=== PATIENT | male | born 1960 | race African-American/Black ===

== ENCOUNTER 2016-09-25 16:32 | Emergency (ER) | payer MEDICAID ==
[~2016-09-25] VITALS: Ht 177.8 cm; Wt 94.0 kg
[~2016-09-25 16:32] MED LIST: AMLO5TAB4 PO; HYDR-523 PO; TRAM50TA3 PO
[2016-09-25] MEDS ORDERED: SODIUM CHLORIDE 0.9% 1,000 ML IV ONE (18:45)
[2016-09-25 19:19] LABS: HEMATOCRIT. 27.7 % (42.0-52.0); HEMOGLOBIN. 8.5 g/dL (14.0-18.0); MEAN CORPUSCULAR HEMOGLOBIN 22.7 pg (28.0-32.0); MEAN CORPUSCULAR VOLUME 73.9 fL (80.0-94.0); MEAN PLATELET VOLUME 8.1 fl (7.4-10.4); PLATELET 105 x1000/uL (130-400); RED BLOOD CELL COUNT 3.75 mill/uL (4.7-6.1); RED CELL DISTRIBUTION WIDTH 22.1 % (11.6-14.6)
[2016-09-25 19:31] LABS: CARBON DIOXIDE 24 mEq/L (21-32); CHLORIDE 111 mEq/L (98-107); ETHANOL BLOOD 149 mg/dL
[2016-09-25] MEDS ORDERED: IBUPROFEN 600MG TABLET PO ONE (19:45)
[2016-09-25 20:30] LABS: NUCLEATED RED BLOOD CELLS 3 /100 WBC; PLATELET ESTIMATE SLIGHTLY DECREASED
[2016-09-25 23:40] VITALS: BP 138/78
[2016-09-26] MEDS ORDERED: INSULIN REGULAR (HUMULIN R) 300UNITS/3ML IV ONE
[2016-12-18] MEDS ORDERED: PROT40 PO (11:43)
[2017-01-09] MEDS ORDERED: THIA100T72 PO (11:25)
[2017-01-09] MEDS ORDERED: FOLI-43 PO (11:25)
[2017-04-01] MEDS ORDERED: HYDR-4001 PO (08:41)
== END 2016-09-25 23:51 | disposition home or self-care (01) ==
LOC: ER 18:05
DX: S00.83XA Contusion of other part of head, initial encounter (principal); S50.312A Abrasion of left elbow, initial encounter; R55 Syncope and collapse; I10 Essential (primary) hypertension; F17.210 Nicotine dependence, cigarettes, uncomplicated; K76.9 Liver disease, unspecified; D64.9 Anemia, unspecified; F10.129 Alcohol abuse with intoxication, unspecified; Y90.6 Blood alcohol level of 120-199 mg/100 ml; Z96.649 Presence of unspecified artificial hip joint; W01.0XXA Fall on same level from slipping, tripping and stumbling without subsequent striking against object, initial encounter; Y93.89 Activity, other specified; Y92.018 Other place in single-family (private) house as the place of occurrence of the external cause
CPT/HCPCS: 36415; 80048; 85025; 96360; 99284; G0482; J7030; Z7610

== ENCOUNTER 2016-09-26 00:28 | Emergency (ER) | payer MEDICAID ==
[~2016-09-26] VITALS: Ht 177.8 cm; Wt 94.0 kg
[2016-09-26 05:40] VITALS: BP 147/93
== END 2016-09-26 05:59 | disposition home or self-care (01) ==
LOC: ER 00:28
DX: S09.90XA Unspecified injury of head, initial encounter (principal); I10 Essential (primary) hypertension; K70.30 Alcoholic cirrhosis of liver without ascites; F17.210 Nicotine dependence, cigarettes, uncomplicated; F10.10 Alcohol abuse, uncomplicated; Y90.9 Presence of alcohol in blood, level not specified; W01.0XXA Fall on same level from slipping, tripping and stumbling without subsequent striking against object, initial encounter; Y93.89 Activity, other specified; Y92.018 Other place in single-family (private) house as the place of occurrence of the external cause
CPT/HCPCS: 70450; 93005; 99284

== ENCOUNTER 2016-10-14 21:05 | Emergency (ER) | payer MEDICAID ==
[~2016-10-14] VITALS: Ht 182.9 cm; Wt 91.0 kg
[2016-10-14] MEDS ORDERED: KETOROLAC 30MG/ML VIAL IV STA (21:25)
[2016-10-14] MEDS ORDERED: SODIUM CHLORIDE 0.9% 1,000 ML IV ONE (21:25)
[2016-10-14] MEDS ORDERED: NITROGLYCERIN OINT 1GM/INCH UDPKT TD ONE (21:30)
[2016-10-14] MEDS ORDERED: ASPIRIN 81MG TABLET PO ONE (21:30)
[2016-10-14 21:55] LABS: HEMATOCRIT. 27.6 % (42.0-52.0); HEMOGLOBIN. 8.5 g/dL (14.0-18.0); MEAN CORPUSCULAR VOLUME 71.6 fL (80.0-94.0); MEAN PLATELET VOLUME 7.7 fl (7.4-10.4); PLATELET 168 x1000/uL (130-400); RED BLOOD CELL COUNT 3.86 mill/uL (4.7-6.1); RED CELL DISTRIBUTION WIDTH 21.8 % (11.6-14.6)
[2016-10-14 22:02] LABS: D-DIMER 0.73 mg/L FEU (<0.50); INR 1.2; PARTIAL THROMBOPLASTIN TIME 27.8 sec (24.0-34.0); PROTHROMBIN TIME 12.9 sec
[2016-10-14 22:07] LABS: CARBON DIOXIDE 22 mEq/L (21-32); CHLORIDE 105 mEq/L (98-107); ETHANOL BLOOD 279 mg/dL; TROPONIN I < 0.02 ng/mL (0.00-0.04)
[2016-10-14 22:40] LABS: PLATELET ESTIMATE NORMAL
[2016-10-15 00:41] LABS: CLARITY URINE CLEAR (CLEAR); COLOR URINE YELLOW (YELLOW); GLUCOSE URINE NEGATIVE (NEGATIVE); KETONES URINE NEGATIVE (NEGATIVE); LEUKOCYTE ESTERASE URINE NEGATIVE (NEGATIVE); NITRITE URINE NEGATIVE (NEGATIVE); OCCULT BLOOD URINE 1+ (NEGATIVE); PROTEIN URINE 1+ (NEGATIVE); SPECIFIC GRAVITY URINE 1.012 (1.005-1.030)
[2016-10-15 00:51] LABS: *AMPHETAMINES SCREEN URINE NEGATIVE (NEGATIVE); *BARBITURATES SCREEN URINE NEGATIVE (NEGATIVE); *BENZODIAZEPINES SCREEN URINE PRESUMTIVE POSITIVE (NEGATIVE); *COCAINE SCREEN URINE NEGATIVE (NEGATIVE); CANNABINOID URINE SCREEN NEGATIVE (NEGATIVE); METHADONE URINE SCREEN NEGATIVE (NEGATIVE); OPIATES URINE SCREEN NEGATIVE (NEGATIVE); PHENCYCLIDINE URINE SCREEN NEGATIVE (NEGATIVE)
[2016-10-15 01:15] VITALS: BP 132/74
== END 2016-10-15 02:01 | disposition home or self-care (01) ==
LOC: ER 21:38
DX: F10.129 Alcohol abuse with intoxication, unspecified (principal); K21.9 Gastro-esophageal reflux disease without esophagitis; D50.9 Iron deficiency anemia, unspecified; I10 Essential (primary) hypertension; K76.9 Liver disease, unspecified; E87.6 Hypokalemia; E83.51 Hypocalcemia; Y90.8 Blood alcohol level of 240 mg/100 ml or more
CPT/HCPCS: 36415; 71010; 80053; 80305; 81001; 83690; 83880; 84484; 85025; 85379; 85610; 85730; 93005; 96361; 96374; 99285; G0482; J1885; J7030

== ENCOUNTER 2016-10-26 16:11 | Emergency (ER) | payer MEDICAID ==
[~2016-10-26] VITALS: Ht 177.8 cm; Wt 94.0 kg
[2016-10-26] MEDS ORDERED: KETOROLAC 15MG/ML VIAL IV ONE (17:00)
[2016-10-26] MEDS ORDERED: SODIUM CHLORIDE 0.9% 1,000 ML IV ONE (17:09)
[2016-10-26 17:39] LABS: HEMATOCRIT. 27.5 % (42.0-52.0); HEMOGLOBIN. 8.3 g/dL (14.0-18.0); MEAN CORPUSCULAR HEMOGLOBIN 21.3 pg (28.0-32.0); MEAN CORPUSCULAR VOLUME 70.4 fL (80.0-94.0); MEAN PLATELET VOLUME 8.2 fl (7.4-10.4); PLATELET 104 x1000/uL (130-400); RED BLOOD CELL COUNT 3.91 mill/uL (4.7-6.1); RED CELL DISTRIBUTION WIDTH 21.3 % (11.6-14.6)
[2016-10-26 17:40] LABS: CHLORIDE 110 mEq/L (98-107)
[2016-10-26 17:41] LABS: INR 1.2
[2016-10-26 17:42] LABS: CLARITY URINE CLEAR (CLEAR); COLOR URINE YELLOW (YELLOW); GLUCOSE URINE NEGATIVE (NEGATIVE); KETONES URINE NEGATIVE (NEGATIVE); LEUKOCYTE ESTERASE URINE NEGATIVE (NEGATIVE); NITRITE URINE NEGATIVE (NEGATIVE); OCCULT BLOOD URINE 2+ (NEGATIVE); PH URINE 5.5 (4.5-8.0); PROTEIN URINE TRACE (NEGATIVE); SPECIFIC GRAVITY URINE 1.014 (1.005-1.030)
[2016-10-26 17:50] LABS: CARBON DIOXIDE 22 mEq/L (21-32); TROPONIN I < 0.02 ng/mL (0.00-0.04)
[2016-10-26 18:03] LABS: PLATELET ESTIMATE DECREASED
[2016-10-26] MEDS ORDERED: SODIUM CHLORIDE 0.9% 1000ML BAG (SEPSIS BOLUS) IV ONE (18:15)
[2016-10-26 18:55] LABS: CLARITY URINE CLEAR (CLEAR); COLOR URINE DARK YELLOW (YELLOW); GLUCOSE URINE NEGATIVE (NEGATIVE); KETONES URINE TRACE (NEGATIVE); LEUKOCYTE ESTERASE URINE NEGATIVE (NEGATIVE); NITRITE URINE NEGATIVE (NEGATIVE); OCCULT BLOOD URINE 2+ (NEGATIVE); PH URINE 5.5 (4.5-8.0); PROTEIN URINE 1+ (NEGATIVE); SPECIFIC GRAVITY URINE 1.023 (1.005-1.030)
[2016-10-26 19:23] LABS: *AMPHETAMINES SCREEN URINE NEGATIVE (NEGATIVE); *BARBITURATES SCREEN URINE NEGATIVE (NEGATIVE); *BENZODIAZEPINES SCREEN URINE PRESUMTIVE POSITIVE (NEGATIVE); *COCAINE SCREEN URINE NEGATIVE (NEGATIVE); CANNABINOID URINE SCREEN NEGATIVE (NEGATIVE); METHADONE URINE SCREEN NEGATIVE (NEGATIVE); OPIATES URINE SCREEN NEGATIVE (NEGATIVE); PHENCYCLIDINE URINE SCREEN NEGATIVE (NEGATIVE)
[2016-10-26] MEDS ORDERED: ACETAMINOPHEN 325MG TABLET PO ONE (20:30)
[2016-10-26 21:35] VITALS: BP 148/86
== END 2016-10-26 21:50 | disposition home or self-care (01) ==
LOC: ER 16:19
DX: F10.129 Alcohol abuse with intoxication, unspecified (principal); K29.20 Alcoholic gastritis without bleeding; K74.60 Unspecified cirrhosis of liver; D61.818 Other pancytopenia; I10 Essential (primary) hypertension; M25.551 Pain in right hip; H53.8 Other visual disturbances; R42 Dizziness and giddiness; R07.9 Chest pain, unspecified
CPT/HCPCS: 36415; 71010; 74176; 80053; 80305; 81001; 83605; 83690; 84484; 85025; 85610; 87040; 87086; 93005; 96361; 96374; 99285; G0482; J1885; J7030; Z7610

== ENCOUNTER 2016-11-08 16:29 | Emergency (ER) | payer MEDICAID ==
[~2016-11-08] VITALS: Ht 177.8 cm; Wt 85.0 kg
[2016-11-08] MEDS ORDERED: TRAMADOL 50MG TABLET PO ONE ×2 (18:45→21:00)
[2016-11-08] MEDS ORDERED: ACETAMINOPHEN 325MG TABLET PO ONE ×2 (18:45→21:00)
[2016-11-08 21:30] VITALS: BP 153/82
== END 2016-11-08 22:48 | disposition home or self-care (01) ==
LOC: ER 17:06
DX: R07.89 Other chest pain (principal); B86 Scabies; M25.551 Pain in right hip; G89.29 Other chronic pain; F10.20 Alcohol dependence, uncomplicated; I10 Essential (primary) hypertension
CPT/HCPCS: 36415; 84484; 93005; 99285

== ENCOUNTER 2016-12-10 22:54 | Inpatient (IN) | payer MEDICAID ==
[~2016-12-10] VITALS: Ht 177.8 cm; Wt 79.9 kg
[2016-12-10] MEDS ORDERED: KETOROLAC 30MG/ML VIAL IV STA (23:46)
[2016-12-11] VITALS (9 sets, daily range): BP systolic 135–146; BP diastolic 57–103
[2016-12-11 00:05] LABS: MEAN CORPUSCULAR HEMOGLOBIN 22.5 pg (28.0-32.0); MEAN CORPUSCULAR VOLUME 73.4 fL (80.0-94.0); PLATELET 144 x1000/uL (130-400); RED BLOOD CELL COUNT 2.62 mill/uL (4.7-6.1); RED CELL DISTRIBUTION WIDTH 23.3 % (11.6-14.6)
[2016-12-11 00:16] LABS: HEMATOCRIT. 19.2 % (42.0-52.0); HEMOGLOBIN. 5.9 g/dL (14.0-18.0)
[2016-12-11 00:22] LABS: CARBON DIOXIDE 23 mEq/L (21-32); CHLORIDE 108 mEq/L (98-107); TROPONIN I < 0.02 ng/mL (0.00-0.04)
[2016-12-11] MEDS ORDERED: DIPHENHYDRAMINE 50MG/ML VIAL IV ONE (01:00)
[2016-12-11] MEDS ORDERED: PANTOPRAZOLE SODIUM 40 MG/VIAL IV ONE (01:00)
[2016-12-11 01:03] LABS: INR 1.1; PROTHROMBIN TIME 11.9 sec (9.4-11.6)
[2016-12-11 01:51] LABS: PLATELET ESTIMATE NORMAL
[2016-12-11] MEDS ORDERED: ONDANSETRON HCL 4MG/2ML VIAL IV PRN (12:45)
[2016-12-11] MEDS ORDERED: ACETAMINOPHEN 325MG TABLET PO PRN (12:45)
[2016-12-11] MEDS ORDERED: CLONIDINE 0.1MG TABLET PO PRN (12:45)
[2016-12-11] MEDS: HYDROCODONE/ACETAMINOPHEN 5/325MG TABLET PO PRN ×3 (13:00→22:42)
[2016-12-11] MEDS ORDERED: PANTOPRAZOLE 80 MG in SODIUM CHLORIDE 0.9% 100 ML IV SCH (14:00)
[2016-12-11 14:16] LABS: *AMPHETAMINES SCREEN URINE NEGATIVE (NEGATIVE); *BARBITURATES SCREEN URINE NEGATIVE (NEGATIVE); *BENZODIAZEPINES SCREEN URINE NEGATIVE (NEGATIVE); *COCAINE SCREEN URINE NEGATIVE (NEGATIVE); CANNABINOID URINE SCREEN NEGATIVE (NEGATIVE); METHADONE URINE SCREEN NEGATIVE (NEGATIVE); OPIATES URINE SCREEN NEGATIVE (NEGATIVE); PHENCYCLIDINE URINE SCREEN NEGATIVE (NEGATIVE)
[2016-12-11 19:54] LABS: HEMATOCRIT 24.5 % (42.0-52.0); HEMOGLOBIN 7.8 g/dL (14.0-18.0)
[2016-12-12] VITALS: BP 136/53
[2016-12-12] MEDS: HYDROCODONE/ACETAMINOPHEN 5/325MG TABLET PO PRN ×5 (03:40→23:01)
[2016-12-12 04:00] VITALS: BP 136/65
[2016-12-12 08:01] LABS: BASOPHILS % 2.6 % (0.0-2.0); EOSINOPHILS % 13.1 % (0.0-5.0); HEMATOCRIT. 25.6 % (42.0-52.0); HEMOGLOBIN. 7.9 g/dL (14.0-18.0); LYMPHOCYTES % 16.7 % (20.0-50.0); MEAN CORPUSCULAR HEMOGLOBIN 23.4 pg (28.0-32.0); MEAN CORPUSCULAR VOLUME 75.9 fL (80.0-94.0); MEAN PLATELET VOLUME 8.3 fl (7.4-10.4); MONOCYTES % 14.6 % (2.0-8.0); PLATELET 104 x1000/uL (130-400); RED BLOOD CELL COUNT 3.38 mill/uL (4.7-6.1)
[2016-12-12 08:15] VITALS: BP 145/69
[2016-12-12] MEDS: PANTOPRAZOLE SODIUM 40 MG/VIAL IV SCH (08:26)
[2016-12-12 12:00] VITALS: BP 142/75
[2016-12-12 16:00] VITALS: BP 113/69
[2016-12-12] MEDS: DIPHENHYDRAMINE 50MG/ML VIAL IV PRN ×2 (17:15→23:01)
[2016-12-12 20:00] VITALS: BP 113/61
[2016-12-13 00:22] VITALS: BP 101/56
[2016-12-13] MEDS: HYDROCODONE/ACETAMINOPHEN 5/325MG TABLET PO PRN ×5 (03:05→21:32)
[2016-12-13] MEDS: DIPHENHYDRAMINE 50MG/ML VIAL IV PRN ×5 (03:05→21:33)
[2016-12-13 04:00] VITALS: BP 121/63
[2016-12-13 07:35] LABS: HEMATOCRIT 25.2 % (42.0-52.0); HEMOGLOBIN 7.9 g/dL (14.0-18.0); MEAN CORPUSCULAR HEMOGLOBIN 23.9 pg (28.0-32.0); MEAN CORPUSCULAR VOLUME 76.5 fL (80.0-94.0); PLATELET 108 x1000/uL (130-400); RED BLOOD CELL COUNT 3.29 mill/uL (4.7-6.1); RED CELL DISTRIBUTION WIDTH 21.9 % (11.6-14.6)
[2016-12-13 08:00] VITALS: BP 142/77
[2016-12-13 08:19] LABS: CARBON DIOXIDE 25 mEq/L (21-32); CHLORIDE 106 mEq/L (98-107)
[2016-12-13] MEDS: PANTOPRAZOLE SODIUM 40 MG/VIAL IV SCH (08:51)
[2016-12-13] MEDS ORDERED: PHENYLEPHRINE/SHK LV/MO/PET,WH RECTAL OINT 30GM PR PRN (11:00)
[2016-12-13 12:00] VITALS: BP 126/68
[2016-12-13] MEDS ORDERED: FERR325T6 PO (15:15)
[2016-12-13] MEDS ORDERED: POTASSIUM CHLORIDE 20MEQ TABLET SR PO SCH (15:15)
[2016-12-13] MEDS ORDERED: ASCO500C15 PO (15:15)
[2016-12-13 16:00] VITALS: BP 118/62
[2016-12-13 20:30] VITALS: BP 124/63
[2016-12-14 00:10] VITALS: BP 132/60
[2016-12-14] MEDS: DIPHENHYDRAMINE 50MG/ML VIAL IV PRN ×4 (01:35→13:45)
[2016-12-14] MEDS: HYDROCODONE/ACETAMINOPHEN 5/325MG TABLET PO PRN ×4 (01:36→13:49)
[2016-12-14 04:00] VITALS: BP 124/61
[2016-12-14 07:05] LABS: HEMATOCRIT 24.7 % (42.0-52.0); HEMOGLOBIN 7.7 g/dL (14.0-18.0)
[2016-12-14 08:00] VITALS: BP 127/63
[2016-12-14] MEDS: PANTOPRAZOLE SODIUM 40 MG/VIAL IV SCH (09:35)
[2016-12-14] MEDS: METOCLOPRAMIDE HCL 10MG/2ML VIAL IV SCH ×2 (10:36→13:45)
[2016-12-14 11:22] VITALS: BP 127/67
[2016-12-14 12:00] VITALS: BP 118/74
[2016-12-14 13:49] VITALS: BP 118/74
[2016-12-18] MEDS ORDERED: PROT40 PO (11:43)
== END 2016-12-14 16:20 | disposition home or self-care (01) | DRG 253 ==
LOC: ER 22:54 → 7WST 12-11 06:23 → EDBEDREQ 12-11 06:30 → ENRESERV 12-11 07:55
PROVIDERS: ADMIT Internal Medicine; ATTEND Internal Medicine
PROC: 30233N1 Transfusion of Nonautologous Red Blood Cells into Peripheral Vein, Percutaneous Approach (ICD-10-PCS; principal; 2016-12-11)
DX: K92.2 Gastrointestinal hemorrhage, unspecified (principal); I81 Portal vein thrombosis; E43 Unspecified severe protein-calorie malnutrition; K76.6 Portal hypertension; K70.30 Alcoholic cirrhosis of liver without ascites; M87.9 Osteonecrosis, unspecified; F10.10 Alcohol abuse, uncomplicated; D50.9 Iron deficiency anemia, unspecified; I10 Essential (primary) hypertension; K92.1 Melena; D12.2 Benign neoplasm of ascending colon; E87.6 Hypokalemia; K29.80 Duodenitis without bleeding; E78.5 Hyperlipidemia, unspecified; F17.200 Nicotine dependence, unspecified, uncomplicated; Z96.659 Presence of unspecified artificial knee joint; R74.0 Nonspecific elevation of levels of transaminase and lactic acid dehydrogenase [LDH]; K29.60 Other gastritis without bleeding; K31.89 Other diseases of stomach and duodenum; K64.0 First degree hemorrhoids; Z79.899 Other long term (current) drug therapy; Z91.19 Patient's noncompliance with other medical treatment and regimen; Z91.14 Patient's other noncompliance with medication regimen
CPT/HCPCS: 36415; 71010; 74000; 76700; 80053; 80061; 80305; 82105; 83690; 84484; 85014; 85018; 85025; 85027; 85610; 85730; 86850; 86870; 86900; 86920; 87040; 87086; 93005; 96374; 96375; 96376; 99291; C9113; J1200; J1885; J2765; J7040; J7050; P9016

== ENCOUNTER 2016-12-15 22:53 | Inpatient (IN) | payer MEDICAID ==
[~2016-12-15] VITALS: Ht 172.7 cm; Wt 82.6 kg
[~2016-12-15 22:53] MED LIST changes: +ASCO500C15 PO; +FERR325T6 PO
[2016-12-15] MEDS ORDERED: PANTOPRAZOLE SODIUM 40 MG/VIAL IV STA (23:10)
[2016-12-15] MEDS ORDERED: SODIUM CHLORIDE 0.9% 1,000 ML IV ONE (23:10)
[2016-12-15] MEDS ORDERED: ONDANSETRON HCL 4MG/2ML VIAL IV STA (23:10)
[2016-12-15] MEDS ORDERED: FAMOTIDINE 20MG/2ML VIAL IV STA (23:10)
[2016-12-15] MEDS ORDERED: OCTREOTIDE ACETATE 50 MCG/ML 1ML IV ONE (23:15)
[2016-12-15 23:54] LABS: HEMATOCRIT. 28.3 % (42.0-52.0); HEMOGLOBIN. 8.5 g/dL (14.0-18.0); MEAN CORPUSCULAR HEMOGLOBIN 23.6 pg (28.0-32.0); MEAN CORPUSCULAR VOLUME 78.3 fL (80.0-94.0); MEAN PLATELET VOLUME 9.5 fl (7.4-10.4); PLATELET 169 x1000/uL (130-400); RED BLOOD CELL COUNT 3.62 mill/uL (4.7-6.1)
[2016-12-16 00:10] LABS: PROTHROMBIN TIME 10.7 sec (9.4-11.6)
[2016-12-16 00:21] LABS: CARBON DIOXIDE 20 mEq/L (21-32); CHLORIDE 107 mEq/L (98-107); ETHANOL BLOOD 180 mg/dL; NUCLEATED RED BLOOD CELLS 3 /100 WBC; TROPONIN I < 0.02 ng/mL (0.00-0.04)
[2016-12-16 00:22] LABS: PLATELET ESTIMATE NORMAL
[2016-12-16 00:48] LABS: AMMONIA 69 uMol/L (<32)
[2016-12-16] MEDS ORDERED: LACTULOSE 20G/30ML UDC PO NR (04:45)
[2016-12-16 11:00] VITALS: BP 149/86
[2016-12-16] MEDS ORDERED: ONDANSETRON HCL 4MG/2ML VIAL IV PRN (11:00)
[2016-12-16] MEDS ORDERED: IPRATROPIUM/ALBUTEROL 0.5-3(2.5)MG/3ML NEB INH PRN (11:00)
[2016-12-16] MEDS ORDERED: HYDROCODONE/ACETAMINOPHEN 5/325MG TABLET PO PRN (11:00)
[2016-12-16] MEDS ORDERED: NA PHOS,M-B/NA PHOS,DI-BA ENEMA 118ML PR PRN (11:00)
[2016-12-16] MEDS ORDERED: ACETAMINOPHEN 650MG/20.3ML UDC GT PRN (11:00)
[2016-12-16] MEDS ORDERED: CLONIDINE 0.1MG TABLET PO PRN (11:00)
[2016-12-16] MEDS ORDERED: ACETAMINOPHEN 650MG SUPP PR PRN (11:00)
[2016-12-16] MEDS ORDERED: MAGNESIUM/ALUMINUM HYDROXIDE/SIMETHICONE 30ML UDC PO PRN (11:00)
[2016-12-16] MEDS ORDERED: DOCUSATE SODIUM 100MG CAPSULE PO PRN (11:00)
[2016-12-16] MEDS ORDERED: ACETAMINOPHEN 325MG TABLET PO PRN (11:00)
[2016-12-16] MEDS: PANTOPRAZOLE SODIUM 40 MG/VIAL IV SCH (11:41)
[2016-12-16 12:00] VITALS: BP 147/82
[2016-12-16 12:35] LABS: HEMATOCRIT. 25.8 % (42.0-52.0); MEAN CORPUSCULAR HEMOGLOBIN 23.7 pg (28.0-32.0); MEAN CORPUSCULAR VOLUME 76.8 fL (80.0-94.0); MEAN PLATELET VOLUME 9.3 fl (7.4-10.4); PLATELET 100 x1000/uL (130-400); RED BLOOD CELL COUNT 3.36 mill/uL (4.7-6.1); RED CELL DISTRIBUTION WIDTH 23.4 % (11.6-14.6)
[2016-12-16 12:50] LABS: CARBON DIOXIDE 23 mEq/L (21-32); CHLORIDE 108 mEq/L (98-107)
[2016-12-16] MEDS: SODIUM CHLORIDE 0.9% 1,000 ML IV SCH ×2 (12:57→21:25)
[2016-12-16] MEDS: MORPHINE SULFATE 4 MG/ML CPJ (NOT FOR IM USE) IV PRN ×3 (12:59→22:47)
[2016-12-16 13:02] LABS: PLATELET ESTIMATE DECREASED
[2016-12-16] MEDS: DIPHENHYDRAMINE 50MG/ML VIAL IV PRN ×2 (14:44→19:57)
[2016-12-16 16:18] VITALS: BP 92/68
[2016-12-16 16:21] LABS: CLARITY URINE CLEAR (CLEAR); COLOR URINE YELLOW (YELLOW); GLUCOSE URINE NEGATIVE (NEGATIVE); KETONES URINE NEGATIVE (NEGATIVE); LEUKOCYTE ESTERASE URINE NEGATIVE (NEGATIVE); NITRITE URINE NEGATIVE (NEGATIVE); OCCULT BLOOD URINE TRACE (NEGATIVE); PROTEIN URINE NEGATIVE (NEGATIVE); SPECIFIC GRAVITY URINE 1.015 (1.005-1.030)
[2016-12-16 16:27] LABS: *AMPHETAMINES SCREEN URINE NEGATIVE (NEGATIVE); *BARBITURATES SCREEN URINE NEGATIVE (NEGATIVE); *BENZODIAZEPINES SCREEN URINE PRESUMTIVE POSITIVE (NEGATIVE); *COCAINE SCREEN URINE NEGATIVE (NEGATIVE); CANNABINOID URINE SCREEN NEGATIVE (NEGATIVE); METHADONE URINE SCREEN NEGATIVE (NEGATIVE); OPIATES URINE SCREEN NEGATIVE (NEGATIVE); PHENCYCLIDINE URINE SCREEN NEGATIVE (NEGATIVE)
[2016-12-16 18:15] LABS: CREATINE KINASE 135 IU/L (39-308); TROPONIN I < 0.02 ng/mL (0.00-0.04)
[2016-12-16] MEDS: SODIUM CHLORIDE 0.9% INJ 3ML FLUSH IVF SCH ×2 (18:17→21:25)
[2016-12-16 18:19] VITALS: BP 131/62
[2016-12-16 18:45] LABS: HEMATOCRIT 25.5 % (42.0-52.0); HEMOGLOBIN 7.8 g/dL (14.0-18.0)
[2016-12-16 20:00] VITALS: BP 115/67
[2016-12-16 23:31] LABS: HEMATOCRIT 25.6 % (42.0-52.0); HEMOGLOBIN 7.9 g/dL (14.0-18.0)
[2016-12-17] VITALS (9 sets, daily range): BP systolic 123–140; BP diastolic 60–83
[2016-12-17] MEDS: DIPHENHYDRAMINE 50MG/ML VIAL IV PRN ×5 (00:53→22:57)
[2016-12-17 01:13] LABS: CREATINE KINASE 113 IU/L (39-308); TROPONIN I < 0.02 ng/mL (0.00-0.04)
[2016-12-17] MEDS: MORPHINE SULFATE 4 MG/ML CPJ (NOT FOR IM USE) IV PRN ×2 (02:55→08:17)
[2016-12-17] MEDS: SODIUM CHLORIDE 0.9% 1,000 ML IV SCH (06:09)
[2016-12-17] MEDS: SODIUM CHLORIDE 0.9% INJ 3ML FLUSH IVF SCH ×3 (06:09→22:57)
[2016-12-17] MEDS: PANTOPRAZOLE SODIUM 40 MG/VIAL IV SCH (08:16)
[2016-12-17 08:37] LABS: HEMATOCRIT 25.9 % (42.0-52.0); HEMOGLOBIN 7.9 g/dL (14.0-18.0)
[2016-12-17 11:15] LABS: HEMATOCRIT 24.6 % (42.0-52.0); HEMOGLOBIN 7.7 g/dL (14.0-18.0)
[2016-12-17] MEDS: TRAMADOL 50MG TABLET PO PRN ×2 (12:03→16:47)
[2016-12-17] MEDS ORDERED: METOCLOPRAMIDE HCL 10MG/2ML VIAL IV NR ×2 (17:00→20:00)
[2016-12-17] MEDS ORDERED: BISACODYL 5MG TABLET PO NR ×2 (17:00→20:00)
[2016-12-17] MEDS ORDERED: SORBITOL 70% SOLN 30ML PO NR ×2 (17:00→20:00)
[2016-12-17] MEDS ORDERED: DEXT 5%/0.45% NACL 1000ML 1,000 ML IV SCH (17:15)
[2016-12-17 17:46] LABS: HEMATOCRIT 27.7 % (42.0-52.0); HEMOGLOBIN 8.6 g/dL (14.0-18.0)
[2016-12-17] MEDS: DEXT 5%/0.9% NACL 1,000 ML IV SCH (17:56)
[2016-12-17 19:14] LABS: HEMATOCRIT. 28.3 % (42.0-52.0); HEMOGLOBIN. 8.8 g/dL (14.0-18.0); MEAN CORPUSCULAR HEMOGLOBIN 23.8 pg (28.0-32.0); MEAN CORPUSCULAR VOLUME 76.6 fL (80.0-94.0); MEAN PLATELET VOLUME 8.8 fl (7.4-10.4); PLATELET 85 x1000/uL (130-400); RED BLOOD CELL COUNT 3.69 mill/uL (4.7-6.1); RED CELL DISTRIBUTION WIDTH 22.3 % (11.6-14.6)
[2016-12-18] VITALS (8 sets, daily range): BP systolic 108–143; BP diastolic 63–84
[2016-12-18] MEDS: DIPHENHYDRAMINE 50MG/ML VIAL IV PRN ×5 (02:51→21:33)
[2016-12-18] MEDS: BISACODYL 5MG TABLET PO NR ×2 (04:00→04:58)
[2016-12-18] MEDS ORDERED: METOCLOPRAMIDE HCL 10MG/2ML VIAL IV NR (04:00)
[2016-12-18] MEDS ORDERED: SORBITOL 70% SOLN 30ML PO NR (04:00)
[2016-12-18] MEDS: SODIUM CHLORIDE 0.9% INJ 3ML FLUSH IVF SCH ×3 (05:15→21:33)
[2016-12-18] MEDS: DEXT 5%/0.9% NACL 1,000 ML IV SCH (05:17)
[2016-12-18] MEDS: PANTOPRAZOLE SODIUM 40 MG/VIAL IV SCH (08:45)
[2016-12-18 10:43] LABS: PLATELET ESTIMATE DECREASED
[2016-12-18] MEDS ORDERED: SIMETHICONE 40 MG/0.6 ML 30ML ONE (11:26)
[2016-12-18] MEDS ORDERED: SODIUM CHLORIDE 0.9% 10ML VIAL ONE (11:26)
[2016-12-18] MEDS ORDERED: PROT40 PO (11:43)
[2016-12-18] MEDS ORDERED: SORBITOL 70% SOLN 30ML PO SCH (12:45)
[2016-12-18] MEDS ORDERED: METOCLOPRAMIDE HCL 10MG/2ML VIAL IV SCH (12:45)
[2016-12-18] MEDS ORDERED: BISACODYL 5MG TABLET PO SCH (12:45)
[2016-12-18] MEDS ORDERED: MIDAZOLAM HCL 5 MG/5 ML VIAL ONE (18:53)
[2016-12-18] MEDS ORDERED: FENTANYL CITRATE/PF 50MCG/ML 2ML VIAL ONE ×2 (18:53→19:11)
[2016-12-18] MEDS ORDERED: FENTANYL CITRATE/PF 50MCG/ML 2ML VIAL IV PRN (18:54)
[2016-12-18] MEDS ORDERED: MIDAZOLAM HCL 5 MG/5 ML VIAL IV PRN (18:54)
[2016-12-18] MEDS ORDERED: DIAZEPAM 5 MG/ML 2ML CPJ IV PRN (19:04)
[2016-12-18] MEDS ORDERED: DIAZEPAM 5 MG/ML 2ML CPJ ONE (19:04)
[2016-12-18 21:15] LABS: CHLORIDE 115 mEq/L (98-107)
[2016-12-18 21:23] LABS: CARBON DIOXIDE 20 mEq/L (21-32)
[2016-12-18] MEDS: TRAMADOL 50MG TABLET PO PRN (22:29)
[2017-01-09] MEDS ORDERED: THIA100T72 PO (11:25)
[2017-01-09] MEDS ORDERED: FOLI-43 PO (11:25)
== END 2016-12-18 23:00 | disposition home or self-care (01) | DRG 254 ==
LOC: ER 22:53 → 8WST 12-16 00:47 → ENRESERV 12-16 07:00
PROVIDERS: ADMIT Family Medicine; ATTEND Family Medicine
PROC: 30233N1 Transfusion of Nonautologous Red Blood Cells into Peripheral Vein, Percutaneous Approach (ICD-10-PCS; principal; 2016-12-17)
DX: K92.1 Melena (principal); I81 Portal vein thrombosis; E43 Unspecified severe protein-calorie malnutrition; K76.6 Portal hypertension; E87.2 Acidosis; E72.20 Disorder of urea cycle metabolism, unspecified; K70.30 Alcoholic cirrhosis of liver without ascites; M87.9 Osteonecrosis, unspecified; F10.20 Alcohol dependence, uncomplicated; D50.9 Iron deficiency anemia, unspecified; I10 Essential (primary) hypertension; Z68.27 Body mass index [BMI] 27.0-27.9, adult; F17.200 Nicotine dependence, unspecified, uncomplicated; M48.06 Spinal stenosis, lumbar region; J98.11 Atelectasis; K20.9 Esophagitis, unspecified; M51.37 Other intervertebral disc degeneration, lumbosacral region; T51.0X1A Toxic effect of ethanol, accidental (unintentional), initial encounter; W34.00XA Accidental discharge from unspecified firearms or gun, initial encounter; Z96.659 Presence of unspecified artificial knee joint; T51.91XA Toxic effect of unspecified alcohol, accidental (unintentional), initial encounter
CPT/HCPCS: 36415; 71010; 73552; 73562; 74176; 80048; 80053; 80305; 81001; 82140; 82550; 83605; 83690; 83880; 84484; 85014; 85018; 85025; 85610; 86850; 86870; 86880; 86900; 86920; 93005; 96361; 96374; 96375; 99291; A4216; C9113; G0482; J1200; J2250; J2270; J2354; J2405; J2765; J3010; J3490; J7030; J7040; J7042; P9016

== ENCOUNTER 2017-01-01 17:57 | Emergency (ER) | payer MEDICAID ==
[~2017-01-01] VITALS: Ht 180.3 cm; Wt 100.0 kg
[~2017-01-01 17:57] MED LIST changes: -AMLO5TAB4 PO; +PROT40 PO
[2017-01-01] MEDS ORDERED: SODIUM CHLORIDE 0.9% 1,000 ML IV ONE (21:29)
[2017-01-01 22:36] LABS: HEMATOCRIT. 26.2 % (42.0-52.0); HEMOGLOBIN. 8.1 g/dL (14.0-18.0); MEAN CORPUSCULAR VOLUME 74.2 fL (80.0-94.0); PLATELET 127 x1000/uL (130-400); RED BLOOD CELL COUNT 3.52 mill/uL (4.7-6.1); RED CELL DISTRIBUTION WIDTH 22.7 % (11.6-14.6)
[2017-01-01 22:39] LABS: CHLORIDE 111 mEq/L (98-107)
[2017-01-01 22:42] LABS: CARBON DIOXIDE 22 mEq/L (21-32); INR 1.1; PARTIAL THROMBOPLASTIN TIME 27.1 sec (23.4-31.0); PROTHROMBIN TIME 11.9 sec (9.4-11.6)
[2017-01-01 23:05] LABS: PLATELET ESTIMATE SLIGHTLY DECREASED
[2017-01-01] MEDS ORDERED: HYDROCODONE/ACETAMINOPHEN 5/325MG TABLET PO ONE (23:30)
[2017-01-02 02:22] VITALS: BP 145/91
[2017-01-09] MEDS ORDERED: THIA100T72 PO (11:25)
[2017-01-09] MEDS ORDERED: FOLI-43 PO (11:25)
== END 2017-01-02 02:05 | disposition home or self-care (01) ==
LOC: ER 17:57
DX: K92.2 Gastrointestinal hemorrhage, unspecified (principal); D61.818 Other pancytopenia; F10.288 Alcohol dependence with other alcohol-induced disorder; Y90.9 Presence of alcohol in blood, level not specified; I10 Essential (primary) hypertension; Z87.19 Personal history of other diseases of the digestive system
CPT/HCPCS: 36415; 80053; 83690; 85025; 85610; 85730; 86850; 86900; 86901; 96360; 99284; J7030; Z7610

== ENCOUNTER 2017-01-04 19:01 | Inpatient (IN) | payer OTHER, MEDICAID ==
[~2017-01-04] VITALS: Ht 177.8 cm; Wt 78.5 kg
[2017-01-04] MEDS ORDERED: ACETAMINOPHEN 650MG/20.3ML UDC PO ONE (21:15)
[2017-01-04] MEDS ORDERED: DIPHENHYDRAMINE 25MG CAPSULE PO ONE (21:15)
[2017-01-04 21:55] LABS: HEMATOCRIT. 21.9 % (42.0-52.0); MEAN CORPUSCULAR HEMOGLOBIN 22.8 pg (28.0-32.0); MEAN CORPUSCULAR VOLUME 75.2 fL (80.0-94.0); MEAN PLATELET VOLUME 7.9 fl (7.4-10.4); PLATELET 112 x1000/uL (130-400); RED BLOOD CELL COUNT 2.91 mill/uL (4.7-6.1); RED CELL DISTRIBUTION WIDTH 22.5 % (11.6-14.6)
[2017-01-04 21:57] LABS: HEMOGLOBIN. 6.6 g/dL (14.0-18.0)
[2017-01-04 22:01] LABS: INR 1.1; PROTHROMBIN TIME 11.5 sec (9.4-11.6)
[2017-01-04 22:03] LABS: CARBON DIOXIDE 21 mEq/L (21-32); CHLORIDE 110 mEq/L (98-107)
[2017-01-04 22:10] LABS: TROPONIN I < 0.02 ng/mL (0.00-0.04)
[2017-01-04] MEDS ORDERED: POTASSIUM CHLORIDE 20MEQ TABLET SR PO SCH (22:30)
[2017-01-04] MEDS ORDERED: PANTOPRAZOLE SODIUM 40 MG/VIAL IV ONE (22:30)
[2017-01-04 22:39] LABS: CLARITY URINE CLEAR (CLEAR); COLOR URINE YELLOW (YELLOW); GLUCOSE URINE NEGATIVE (NEGATIVE); KETONES URINE NEGATIVE (NEGATIVE); LEUKOCYTE ESTERASE URINE NEGATIVE (NEGATIVE); NITRITE URINE NEGATIVE (NEGATIVE); OCCULT BLOOD URINE TRACE (NEGATIVE); PH URINE 5.5 (4.5-8.0); PROTEIN URINE NEGATIVE (NEGATIVE); SPECIFIC GRAVITY URINE 1.013 (1.005-1.030)
[2017-01-04 23:01] LABS: PLATELET ESTIMATE DECREASED
[2017-01-04 23:30] VITALS: BP 140/74
[2017-01-04 23:40] VITALS: BP 140/74
[2017-01-05] VITALS (14 sets, daily range): BP systolic 110–170; BP diastolic 50–98
[2017-01-05] MEDS ORDERED: CLONIDINE 0.1MG TABLET PO PRN
[2017-01-05] MEDS ORDERED: ONDANSETRON HCL 4MG/2ML VIAL IV PRN
[2017-01-05] MEDS ORDERED: IPRATROPIUM/ALBUTEROL 0.5-3(2.5)MG/3ML NEB INH PRN
[2017-01-05] MEDS ORDERED: MAGNESIUM/ALUMINUM HYDROXIDE/SIMETHICONE 30ML UDC PO PRN
[2017-01-05] MEDS ORDERED: MEDICATION NOT ON FORMULARY EA (Ferrous Sulfate 325 MG) PO SCH (00:30)
[2017-01-05] MEDS ORDERED: MEDICATION NOT ON FORMULARY EA (Ascorbic Acid (Vitamin C) 500 MG) PO SCH (00:30)
[2017-01-05] MEDS ORDERED: TRAMADOL 50MG TABLET PO PRN (00:30)
[2017-01-05] MEDS: DIPHENHYDRAMINE 25MG CAPSULE PO PRN ×4 (00:50→23:28)
[2017-01-05] MEDS: HYDROCODONE/ACETAMINOPHEN 5/325MG TABLET PO PRN ×6 (00:50→23:27)
[2017-01-05 07:12] LABS: *AMPHETAMINES SCREEN URINE NEGATIVE (NEGATIVE); *BARBITURATES SCREEN URINE NEGATIVE (NEGATIVE); *BENZODIAZEPINES SCREEN URINE NEGATIVE (NEGATIVE); *COCAINE SCREEN URINE NEGATIVE (NEGATIVE); CANNABINOID URINE SCREEN NEGATIVE (NEGATIVE); METHADONE URINE SCREEN NEGATIVE (NEGATIVE); OPIATES URINE SCREEN NEGATIVE (NEGATIVE); PHENCYCLIDINE URINE SCREEN NEGATIVE (NEGATIVE)
[2017-01-05] MEDS: FERROUS SULFATE 325MG TABLET PO SCH ×3 (08:33→17:09)
[2017-01-05] MEDS: PANTOPRAZOLE SODIUM 40 MG/VIAL IV SCH (08:33)
[2017-01-05] MEDS: ASCORBIC ACID 500 MG TABLET PO SCH ×2 (08:36→17:09)
[2017-01-05] MEDS: DOCUSATE SODIUM 100MG CAPSULE PO PRN (08:36)
[2017-01-05 09:47] LABS: HEMATOCRIT. 26.9 % (42.0-52.0); HEMOGLOBIN. 8.6 g/dL (14.0-18.0); MEAN CORPUSCULAR HEMOGLOBIN 24.5 pg (28.0-32.0); MEAN CORPUSCULAR VOLUME 76.3 fL (80.0-94.0); MEAN PLATELET VOLUME 8.5 fl (7.4-10.4); PLATELET 98 x1000/uL (130-400); RED BLOOD CELL COUNT 3.52 mill/uL (4.7-6.1); RED CELL DISTRIBUTION WIDTH 21.6 % (11.6-14.6)
[2017-01-05 10:09] LABS: CARBON DIOXIDE 21 mEq/L (21-32); CHLORIDE 109 mEq/L (98-107); CREATINE KINASE 191 IU/L (39-308); CREATINE KINASE MB FRACTION 3.9 ng/mL (0.5-3.6); HDL CHOLESTEROL 71 mg/dL (40-59); LDL CHOLESTEROL 29 mg/dL (5-100); TROPONIN I < 0.02 ng/mL (0.00-0.04)
[2017-01-05 13:22] LABS: PLATELET ESTIMATE DECREASED
[2017-01-05 17:48] LABS: HEMATOCRIT 27.9 % (42.0-52.0); HEMOGLOBIN 8.8 g/dL (14.0-18.0)
[2017-01-05 18:03] LABS: CREATINE KINASE 146 IU/L (39-308); TROPONIN I < 0.02 ng/mL (0.00-0.04)
[2017-01-05 19:20] LABS: HEPATITIS B SURFACE ANTIGEN NEGATIVE
[2017-01-05 19:49] LABS: HEPATITIS B CORE AB IGM NEGATIVE
[2017-01-05 19:50] LABS: HEPATITIS A AB IGM NEGATIVE (NEGATIVE)
[2017-01-06] VITALS: BP 132/65
[2017-01-06 04:00] VITALS: BP 122/71
[2017-01-06 06:22] LABS: CARBON DIOXIDE 24 mEq/L (21-32); CHLORIDE 107 mEq/L (98-107); HEMATOCRIT. 27.3 % (42.0-52.0); HEMOGLOBIN. 8.7 g/dL (14.0-18.0); MEAN CORPUSCULAR HEMOGLOBIN 24.2 pg (28.0-32.0); MEAN CORPUSCULAR VOLUME 76.1 fL (80.0-94.0); MEAN PLATELET VOLUME 8.9 fl (7.4-10.4); PLATELET 95 x1000/uL (130-400); RED BLOOD CELL COUNT 3.59 mill/uL (4.7-6.1); RED CELL DISTRIBUTION WIDTH 21.6 % (11.6-14.6)
[2017-01-06] MEDS: HYDROCODONE/ACETAMINOPHEN 5/325MG TABLET PO PRN ×3 (06:34→20:26)
[2017-01-06] MEDS: DIPHENHYDRAMINE 25MG CAPSULE PO PRN ×2 (06:35→20:21)
[2017-01-06 08:00] VITALS: BP 130/70
[2017-01-06] MEDS: ASCORBIC ACID 500 MG TABLET PO SCH ×2 (08:18→16:09)
[2017-01-06] MEDS: PANTOPRAZOLE SODIUM 40 MG/VIAL IV SCH (08:18)
[2017-01-06] MEDS: FERROUS SULFATE 325MG TABLET PO SCH ×3 (08:18→16:09)
[2017-01-06 12:00] VITALS: BP 122/74
[2017-01-06 13:52] LABS: PLATELET ESTIMATE SLIGHTLY DECREASED
[2017-01-06] MEDS ORDERED: POTASSIUM CHLORIDE 20MEQ TABLET SR PO NR (15:00)
[2017-01-06 16:00] VITALS: BP 118/65
[2017-01-06 20:00] VITALS: BP 141/79
[2017-01-07] VITALS: BP 139/86
[2017-01-07] MEDS: ACETAMINOPHEN 325MG TABLET PO PRN ×4 (01:02→20:20)
[2017-01-07] MEDS: HYDROCODONE/ACETAMINOPHEN 5/325MG TABLET PO PRN ×4 (02:12→20:20)
[2017-01-07] MEDS: DIPHENHYDRAMINE 25MG CAPSULE PO PRN ×3 (02:12→20:18)
[2017-01-07 04:00] VITALS: BP 135/76
[2017-01-07 08:00] VITALS: BP 133/77
[2017-01-07] MEDS: ASCORBIC ACID 500 MG TABLET PO SCH ×2 (08:11→16:03)
[2017-01-07] MEDS: FERROUS SULFATE 325MG TABLET PO SCH ×3 (08:12→16:03)
[2017-01-07] MEDS: PANTOPRAZOLE SODIUM 40 MG/VIAL IV SCH (08:14)
[2017-01-07 12:00] VITALS: BP 117/66
[2017-01-07 16:00] VITALS: BP 131/74
[2017-01-07] MEDS ORDERED: LEVOFLOXACIN 750MG PREMIX 150 ML IV SCH (16:00)
[2017-01-07] MEDS: LEVOFLOXACIN 750MG PREMIX 150 ML IV SCH (16:40)
[2017-01-07 20:00] VITALS: BP 147/63
[2017-01-08] VITALS: BP 123/77
[2017-01-08] MEDS: HYDROCODONE/ACETAMINOPHEN 5/325MG TABLET PO PRN ×5 (00:22→23:38)
[2017-01-08] MEDS: ACETAMINOPHEN 325MG TABLET PO PRN ×2 (00:22→23:36)
[2017-01-08] MEDS: DIPHENHYDRAMINE 50MG/ML VIAL IM PRN ×3 (00:23→19:25)
[2017-01-08 04:00] VITALS: BP 134/66
[2017-01-08] MEDS: DIPHENHYDRAMINE 25MG CAPSULE PO PRN ×3 (05:13→23:38)
[2017-01-08 08:00] VITALS: BP 127/83
[2017-01-08] MEDS: ASCORBIC ACID 500 MG TABLET PO SCH ×2 (08:13→16:12)
[2017-01-08] MEDS: PANTOPRAZOLE SODIUM 40 MG/VIAL IV SCH (08:13)
[2017-01-08] MEDS: FERROUS SULFATE 325MG TABLET PO SCH ×3 (08:14→16:12)
[2017-01-08 12:00] VITALS: BP 117/68
[2017-01-08 16:00] VITALS: BP 121/76
[2017-01-08] MEDS: LEVOFLOXACIN 750MG PREMIX 150 ML IV SCH (16:12)
[2017-01-08 20:00] VITALS: BP 121/67
[2017-01-09] VITALS: BP 118/71
[2017-01-09 04:00] VITALS: BP 112/68
[2017-01-09 06:29] LABS: HEMATOCRIT. 32.4 % (42.0-52.0); HEMOGLOBIN. 10.2 g/dL (14.0-18.0); MEAN CORPUSCULAR VOLUME 79.3 fL (80.0-94.0); MEAN PLATELET VOLUME 9.2 fl (7.4-10.4); PLATELET 98 x1000/uL (130-400); RED BLOOD CELL COUNT 4.09 mill/uL (4.7-6.1); RED CELL DISTRIBUTION WIDTH 22.9 % (11.6-14.6)
[2017-01-09 06:45] LABS: CARBON DIOXIDE 25 mEq/L (21-32); CHLORIDE 104 mEq/L (98-107)
[2017-01-09 08:00] VITALS: BP 123/65
[2017-01-09] MEDS: PANTOPRAZOLE SODIUM 40 MG/VIAL IV SCH (08:22)
[2017-01-09] MEDS: FERROUS SULFATE 325MG TABLET PO SCH ×2 (08:23→12:50)
[2017-01-09] MEDS: ASCORBIC ACID 500 MG TABLET PO SCH (08:24)
[2017-01-09] MEDS: HYDROCODONE/ACETAMINOPHEN 5/325MG TABLET PO PRN ×2 (08:39→12:52)
[2017-01-09] MEDS: DOCUSATE SODIUM 100MG CAPSULE PO PRN (08:40)
[2017-01-09] MEDS: DIPHENHYDRAMINE 50MG/ML VIAL IM PRN (09:18)
[2017-01-09] MEDS ORDERED: FOLI-43 PO (11:25)
[2017-01-09] MEDS ORDERED: THIA100T72 PO (11:25)
[2017-01-09 15:01] VITALS: BP 113/62
[2017-01-09 16:45] LABS: NUCLEATED RED BLOOD CELLS 2 /100 WBC; PLATELET ESTIMATE DECREASED
[2017-01-10] MEDS ORDERED: LEVOFLOXACIN 500MG TABLET PO SCH (11:00)
== END 2017-01-09 16:55 | disposition home or self-care (01) | DRG 871 ==
LOC: ER 19:22 → 5WST 22:29 → ENRESERV 22:40
PROVIDERS: ADMIT Internal Medicine; ATTEND Internal Medicine
PROC: 30233N1 Transfusion of Nonautologous Red Blood Cells into Peripheral Vein, Percutaneous Approach (ICD-10-PCS; principal; 2017-01-05)
DX: A41.9 Sepsis, unspecified organism (principal); I81 Portal vein thrombosis; D61.818 Other pancytopenia; K76.6 Portal hypertension; E87.1 Hypo-osmolality and hyponatremia; R16.1 Splenomegaly, not elsewhere classified; F10.188 Alcohol abuse with other alcohol-induced disorder; R65.20 Severe sepsis without septic shock; K70.30 Alcoholic cirrhosis of liver without ascites; R07.89 Other chest pain; E87.6 Hypokalemia; M19.90 Unspecified osteoarthritis, unspecified site; F17.200 Nicotine dependence, unspecified, uncomplicated; I10 Essential (primary) hypertension; J44.9 Chronic obstructive pulmonary disease, unspecified; Z96.659 Presence of unspecified artificial knee joint; Z79.899 Other long term (current) drug therapy; Z71.6 Tobacco abuse counseling
CPT/HCPCS: 36415; 71010; 76700; 80048; 80053; 80061; 80305; 81001; 82550; 82553; 83880; 84443; 84484; 85014; 85018; 85025; 85044; 85610; 86705; 86709; 86803; 86850; 86900; 86920; 87040; 87186; 87340; 93005; 93306; 93970; 96374; 99285; 99406; C9113; J1200; J1956; J7040; P9016; Q0163